=== PATIENT | male | born 1990 | race Hispanic/Latino ===

== ENCOUNTER 2016-11-12 20:26 | Emergency (ER) | payer SELFPAY ==
[~2016-11-12] VITALS: Ht 170.2 cm; Wt 113.4 kg
[~2016-11-12 20:26] MED LIST: CEPH500C PO; CYCL10TA9 PO; TRM50T PO
--- OUTSIDE RECORDS SUMMARY | 2016-11-12 20:31 | XMS REPORT ---
Author JB Balderas [facility], [place] eClinicalWorks Address Unknown Phone Unavailable Care Team Providers Care Therapeutic Recreation Specialist Name Role Phone JB LESLIE CP Unavailable Allergies, Adverse Reactions, Alerts Substance Reaction Event Type N.K.D.A. Info Not Available Non Drug Allergy Problems Problem Type Condition Code Onset Dates Condition Status Assessment Encounter for immunization Z23 Active Assessment Laceration of right hand, initial encounter S61.411A Active Medications Medication Code System Code Instructions Start Date End Date Status Dosage Bactrim DS [facility] [id number] 800-160 MG Orally 2 times a day Aug 06, 2015 Aug 16, 2015 1 tablet Procedures Procedure Coding System Code Date SINGLE IMMUNIZATION ADMIN CPT-4 19991 Aug 06, 2015 Office Visit, Est Pt., Level 2 CPT-4 18559 Aug 06, 2015 TDAP (BOOSTRIX) CPT-4 20064 Aug 06, 2015 Vital Signs Date/Time: Aug 06, 2015 Temperature 97.8 F Weight 238.4 lbs Height 68 in BMI 36.24 Index Blood Pressure Diastolic 76 mmHg Blood Pressure Systolic 124 mmHg Cardiac Monitoring Heart Rate 84 bpm Results No Known Results Immunizations Vaccine Administration Date TDAP (BOOSTRIX) Aug 06, 2015 Summary Purpose eClinicalWorks Submission
[2016-11-12] MEDS ORDERED: NS IV 1000 ML 1,000 ML ONE (21:00)
[2016-11-12] MEDS ORDERED: NS IV 1000 ML 1,000 ML IV SCH (21:00)
[2016-11-12 21:02] LABS: BASOPHILS % (AUTO) 0 % (0-10); EOSINOPHILS # (AUTO) 0.1 10^3/uL (0.0-0.3); EOSINOPHILS % (AUTO) 1 % (0-10); LYMPHOCYTES # (AUTO) 2.3 X 10^3 (1.0-4.0); LYMPHOCYTES % (AUTO) 27 % (12-44); MEAN CORPUSCULAR HEMOGLOBIN 30 PG (25-34); MEAN CORPUSCULAR HGB CONC 34 G/DL (32-36); MEAN CORPUSCULAR VOLUME 87 FL (80-99); MEAN PLATELET VOLUME 9.5 FL (7.4-10.4); MONOCYTES # (AUTO) 0.8 X 10^3 (0.0-1.0); MONOCYTES % (AUTO) 9 % (0-12); NEUTROPHILS # (AUTO) 5.3 X 10^3 (1.8-7.8); NEUTROPHILS % (AUTO) 62 % (42-75); PLATELET COUNT 227 10^3/uL (130-400); RED BLOOD COUNT 4.87 10^6/uL (4.35-5.85); RED CELL DISTRIBUTION WIDTH 14.4 % (10.0-14.5); WHITE BLOOD COUNT 8.5 10^3/uL (4.3-11.0)
--- NOTE | 2016-11-12 21:02 | ED Syncope ---
General Chief Complaint: Dizziness/Syncope Stated Complaint: LOC/SHAKY Nursing Triage Note: PT REPORTS GENERAL MAILAISE X 3 DAYS. PT REPORTS HE RAN OUT OF GAS TODAY AROUND 1800 WHILE DRIVING AND ATTEMPTED TO WALK TO A GAS STATION AND PASSED OUT. PT UNSURE OF HOW LONG. PT DENEIS ANY CURRENT PAIN/INJURY. Source of Information: Patient Exam Limitations: No Limitations History of Present Illness Time Seen by Provider: 21:01 Initial Comments To ER with general malaise for 3 days. This is been associated with chills, rhinorrhea, sore throat and cough. Tonight, he was driving and ran out of gas. He subsequently began walking and passed out. Unsure of how long. He denies any pain. States that he continues to feel very poorly overall. Additionally, he is been drinking about 12 pack a day for the past 2 weeks, none today. Timing/Prior Episodes: No Prior History Precipitating Factors: None Loss of Consciousness: Unsure Allergies and Home Medications Allergies Coded Allergies: No Known Drug Allergies (Verified Allergy, Unknown, 08/08/09) Home Medications No Active Prescriptions or Reported Meds Constitutional: see HPI chills malaise weakness EENTM: see HPI Respiratory: see HPI cough Cardiovascular: no symptoms reported Genitourinary: no symptoms reported Musculoskeletal: no symptoms reported Skin: no symptoms reported Psychiatric/Neurological: No Symptoms Reported Past Tqbuspd-Jxybhn-Iwtrim Hx Patient Social History Alcohol Use: Occasionally Uses Recreational Drug Use: No Smoking Status: Current Everyday Smoker Type Used: Cigarettes Recent Foreign Travel: No Contact w/Someone Who Travel: No Recent Infectious Disease Expo: No Recent Hopitalizations: No Immunizations Up To Date Tetanus Booster (TDap): Less than 5yrs Date of Pneumonia Vaccine: Oct 10, 2011 Surgeries HX Surgeries: No (R EYE) Surgeries: Eye Surgery Respiratory Hx Respiratory Disorders: No Cardiovascular Hx Cardiac Disorders: No Neurological Hx Neurological Disorders: No Reproductive System Hx Reproductive Disorders: No Genitourinary Hx Genitourinary Disorders: No Gastrointestinal Hx Gastrointestinal Disorders: Yes Gastrointestinal Disorders: Gastroesophageal Reflux Musculoskeletal Hx Musculoskeletal Disorders: No Endocrine Hx Endocrine Disorders: No HEENT HX 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) Psychosocial Hx Psychiatric Problems: No Blood Transfusions Hx Blood Disorders: No Family Medical History Significant Family History: No Pertinent Family Hx Physical Exam Vital Signs Vital Sign - Last 12Hours 11/12/16 20:34 Temp 99.7 Pulse 123 Resp 20 B/P 173/92 Pulse Ox 97 Capillary Refill : Less Than 3 Seconds General Appearance: No Apparent Distress WD/WN HEENT: PERRL/EOMI TMs Normal Neck: Full Range of Motion Normal Inspection Cardiovascular: Normal Peripheral Pulses Tachycardia Respiratory: Lungs Clear Normal Breath Sounds No Accessory Muscle Use No Respiratory Distress Gastrointestinal: Normal Bowel Sounds Non Tender Extremities: Normal Capillary Refill Normal Inspection Neurologic/Psychiatric: Alert Oriented x3 No Motor/Sensory Deficits Other (he is alert, cooperative and pleasant.) Cranial Nerves: Normal Hearing, Normal Speech, PERRL Skin: Normal Color Warm/Dry Comments He states that he does not feel anxious or jittery and does appear somewhat lethargic. Though he is arousable and quite pleasant. Progress/Results/Core Measures Results/Orders Lab Results Laboratory Tests Test 11/12/16 20:54 Range/Units Alanine Aminotransferase (ALT/SGPT) 20 0-55 U/L Albumin 4.5 3.2-4.5 G/DL Alkaline Phosphatase 78 40-136 U/L Anion Gap 15 H 5-14 MMOL/L Aspartate Amino Transf (AST/SGOT) 19 5-34 U/L BUN/Creatinine Ratio 7 Basophils # (Auto) 0.0 0.0-0.1 10^3/uL Basophils (%) (Auto) 0 0-10 % Blood Urea Nitrogen 5 L 7-18 MG/DL Calcium Level 8.9 8.5-10.1 MG/DL Carbon Dioxide Level 19 L 21-32 MMOL/L Chloride Level 106 98-107 MMOL/L Creatinine 0.75 0.60-1.30 MG/DL Eosinophils # (Auto) 0.1 0.0-0.3 10^3/uL Eosinophils (%) (Auto) 1 0-10 % Estimat Glomerular Filtration Rate > 60 Glucose Level 93 70-105 MG/DL Hematocrit 42 40-54 % Hemoglobin 14.5 13.3-17.7 G/DL Lymphocytes # (Auto) 2.3 1.0-4.0 X 10^3 Lymphocytes (%) (Auto) 27 12-44 % Mean Corpuscular Hemoglobin 30 25-34 PG Mean Corpuscular Hemoglobin Concent 34 32-36 G/DL Mean Corpuscular Volume 87 80-99 FL Mean Platelet Volume 9.5 7.4-10.4 FL Monocytes # (Auto) 0.8 0.0-1.0 X 10^3 Monocytes (%) (Auto) 9 0-12 % Monoscreen NEGATIVE NEGATIVE Neutrophils # (Auto) 5.3 1.8-7.8 X 10^3 Neutrophils (%) (Auto) 62 42-75 % Platelet Count 227 130-400 10^3/uL Potassium Level 3.6 3.6-5.0 MMOL/L Red Blood Count 4.87 4.35-5.85 10^6/uL Red Cell Distribution Width 14.4 10.0-14.5 % Serum Alcohol < 10 <10 MG/DL Sodium Level 140 135-145 MMOL/L Total Bilirubin 0.4 0.1-1.0 MG/DL Total Protein 7.4 6.4-8.2 G/DL White Blood Count 8.5 4.3-11.0 10^3/uL Micro Results Microbiology 11/12/16 Influenza Types A,B Antigen (ABI) - Final, Complete My Orders Orders-DECLAN COX APRN Ua Culture If Indicated (11/12/16 20:55) Drug Screen Stat (Urine) (11/12/16 20:55) Cbc With Automated Diff (11/12/16 20:55) Ekg Tracing (11/12/16 20:55) Comprehensive Metabolic Panel (11/12/16 20:55) Monotest (11/12/16 20:55) Influenza A And B Antigens (11/12/16 20:55) Alcohol (11/12/16 20:55) Ns Iv 1000 Ml (Sodium Chloride 0.9%) (11/12/16 21:00) Ns Iv 1000 Ml (Sodium Chloride 0.9%) (11/12/16 21:00) Metoprolol Tartrate Injection (Lopressor (11/12/16 21:45) Normal Saline 500 Ml Iv (11/12/16 21:45) Vital Signs/I&O Vital Sign - Last 12Hours 11/12/16 20:34 Temp 99.7 Pulse 123 Resp 20 B/P 173/92 Pulse Ox 97 Blood Pressure Mean: 119 Departure Impression Impression: Primary Impression: Influenza-like illness Disposition: 01 HOME, SELF-CARE Condition: Stable Departure-Patient Inst. Decision time for Depature: 21:33 Referrals: [facility] (PCP/Family) Primary Care Physician Patient Instructions: VIRAL SYNDROME Add. Discharge Instructions: 1. Return to ER for any concerns 2. Follow-up with your doctor next week 3. It is important to go home and drink a few beers. You should not stop drinking alcohol suddenly as this may cause things like alcohol withdrawal and seizures. With that in mind, go home and drink 3-5 beers. All discharge instructions reviewed with patient and/or family. Voiced understanding. Scripts No Active Prescriptions or Reported Meds DECLAN COX APRN Nov 12, 2016 21:02
[2016-11-12 21:20] LABS: ALANINE AMINOTRANSFERASE 20 U/L (0-55); ALBUMIN 4.5 G/DL (3.2-4.5); ANION GAP 15 MMOL/L (5-14); ASPARTATE AMINO TRANSFERASE 19 U/L (5-34); BILIRUBIN,TOTAL 0.4 MG/DL (0.1-1.0); BLOOD UREA NITROGEN 5 MG/DL (7-18); BUN/CREATININE RATIO 7; CALCIUM 8.9 MG/DL (8.5-10.1); CARBON DIOXIDE 19 MMOL/L (21-32); CHLORIDE 106 MMOL/L (98-107); CREATININE SERUM 0.75 MG/DL (0.60-1.30); GFR ESTIMATED > 60; GLUCOSE 93 MG/DL (70-105); POTASSIUM 3.6 MMOL/L (3.6-5.0); SODIUM 140 MMOL/L (135-145); TOTAL PROTEIN 7.4 G/DL (6.4-8.2)
[2016-11-12 21:21] LABS: ALCOHOL < 10 MG/DL (<10)
[2016-11-12] MEDS ORDERED: NS IV 500 ML 500 ML IV SCH (21:45)
[2016-11-12] MEDS ORDERED: meTOprolol 5 MG/5 ML (LOPRESSOR) VIAL IV ONE (21:45)
[2016-11-12 22:06] VITALS: BP 154/95
== END 2016-11-12 22:06 | disposition home or self-care (01) ==
LOC: EDUNIT# 20:26 → ER 20:27
DX: J11.1 Influenza due to unidentified influenza virus with other respiratory manifestations (principal); R55 Syncope and collapse; F17.210 Nicotine dependence, cigarettes, uncomplicated
CPT/HCPCS: 36415; 80053; 80320; 85025; 86308; 87804; 93005; 96361; 96374

== ENCOUNTER 2021-05-09 13:23 | Emergency (ER) | payer SELFPAY ==
[~2021-05-09] VITALS: Ht 170.1 cm; Wt 122.4 kg
[2021-05-09] MEDS ORDERED: NS IV 1000 ML 1,000 ML IV SCH (14:00)
[2021-05-09 14:17] LABS: BASOPHILS % (AUTO) 0 % (0-10); EOSINOPHILS # (AUTO) 0.2 10^3/uL (0.0-0.3); EOSINOPHILS % (AUTO) 1 % (0-10); HEMATOCRIT 41 % (40-54); HEMOGLOBIN 13.6 g/dL (13.3-17.7); LYMPHOCYTES # (AUTO) 2.9 10^3/uL (1.0-4.0); LYMPHOCYTES % (AUTO) 25 % (12-44); MEAN CORPUSCULAR HEMOGLOBIN 29 pg (25-34); MEAN CORPUSCULAR HGB CONC 34 g/dL (32-36); MEAN CORPUSCULAR VOLUME 88 fL (80-99); MEAN PLATELET VOLUME 9.7 fL (9.0-12.2); MONOCYTES % (AUTO) 9 % (0-12); NEUTROPHILS # (AUTO) 7.1 10^3/uL (1.8-7.8); NEUTROPHILS % (AUTO) 64 % (42-75); PLATELET COUNT 247 10^3/uL (130-400); WHITE BLOOD COUNT 11.2 10^3/uL (4.3-11.0)
[2021-05-09 14:18] LABS: BILIRUBIN,URINE NEGATIVE (NEGATIVE); CLARITY,URINE CLEAR; COLOR,URINE YELLOW; GLUCOSE, URINE (UA) NEGATIVE (NEGATIVE); KETONES,URINE 1+ (NEGATIVE); LEUKOCYTE ESTERASE ,URINE NEGATIVE (NEGATIVE); NITRITE,URINE NEGATIVE (NEGATIVE); PROTEIN,URINE NEGATIVE (NEGATIVE)
[2021-05-09 14:29] LABS: ALBUMIN 4.5 GM/DL (3.2-4.5); POTASSIUM 3.8 MMOL/L (3.6-5.0)
[2021-05-09 14:30] LABS: CALCIUM 9.6 MG/DL (8.5-10.1)
[2021-05-09 14:31] LABS: TOTAL PROTEIN 7.8 GM/DL (6.4-8.2)
[2021-05-09 14:33] LABS: BILIRUBIN,TOTAL 0.5 MG/DL (0.1-1.0)
[2021-05-09 14:35] LABS: CREATININE SERUM 0.82 MG/DL (0.60-1.30)
[2021-05-09 14:42] LABS: AMORPHOUS SEDIMENT,UR FEW AMOR URATES /LPF; BACTERIA,URINE TRACE /HPF; RBC,URINE RARE /HPF
--- NOTE | 2021-05-09 15:00 | Diagnostic Imaging Report ---
EXAMINATION: Chest 1 view HISTORY: Shortness of breath and cough COMPARISON: None available. FINDINGS: The lungs are clear without edema or pneumonia. No pleural effusion or pneumothorax. Heart size is normal. IMPRESSION: 1. Clear lungs. Dictated by: Dictated on workstation # [id number]
--- NOTE | 2021-05-09 15:12 | ED Cough/URI ---
General Chief Complaint: Respiratory Problems Stated Complaint: BLOOD IN STOOL FEVER COUGH SOA Nursing Triage Note: ARRIVES TODAY TO ROOM 5 WITH A COMPLAINT OF SOB, SORE THROAT, CONSTIPATION AND BLOOD IN STOOL. PATIENT STATES HE HAS HAD ISSUES WITH CONSTIPATION AND TODAY NOTICED BLOOD IN HIS STOOL AFTER STRAINING TO DEFICATE. DENIES FEVER AND COUGH. Source: patient Exam Limitations: no limitations History of Present Illness Date Seen by Provider: May 09, 2021 Time Seen by Provider: 13:55 Initial Comments Patient is a 30-year-old male who presents to the emergency department today with a chief complaint of shortness of breath, cough, sore throat, feeling constipated and noticed blood in his stool today. Patient states that his sore throat and cough and other constitutional symptoms have been coming on for a couple of days. He denies any known Covid contacts. He is not Covid vaccinated. He denies nausea, chest pain. He denies earache or nasal congestion. He states he was straining to have a bowel movement today when he noticed blood that concerned him. He has no known hemorrhoids. He does endorse a little bit of dysuria that is intermittent over the last few weeks. Patient tells me that he has a history of methamphetamine use. He is trying to get clean. He does have a little bit of concern for sexually transmitted infection. No fevers or chills. Has not taken anything for his symptoms. All other review of systems reviewed and negative except as stated. Severity/Quality: mild, dry cough Prior Episodes/Possible Cause: no prior episodes Associated Symptoms: cough, lightheadedness, shortness of breath, sore throat Allergies and Home Medications Allergies Coded Allergies: No Known Drug Allergies (Verified , 08/08/09) Home Medications No Active Prescriptions or Reported Meds Patient Home Medication List Home Medication List Reviewed: Yes Review of Systems Review of Systems Constitutional: see HPI, chills EENTM: throat pain Respiratory: cough, short of breath Cardiovascular: no symptoms reported Gastrointestinal: other (Blood in stool) Genitourinary: dysuria Musculoskeletal: no symptoms reported Skin: no symptoms reported Psychiatric/Neurological: No Symptoms Reported All Other Systems Reviewed Negative Unless Noted: Yes Past Nhuufud-Ytueuz-Ciated Hx Patient Social History Tobacco type used: Cigarettes Smoking Status: Current Everyday Smoker Use of E-Cig and/or Vaping dev: No Substance use?: Yes Substance type: Methamphetamine Alcohol Use?: Yes Alcohol type: Beer Alcohol Frequency: Couple times a week Pt feels they are or have been: No Immunizations Up To Date Tetanus Booster (TDap): Less than 5yrs Past Medical History Eye Surgery Reproductive Disorders: No Gastroesophageal Reflux Family Medical History No Pertinent Family Hx Physical Exam Vital Signs - First Documented 05/09/21 13:50 Temp 37.0 Pulse 106 Resp 20 B/P (MAP) 161/100 (120) Pulse Ox 97 O2 Delivery Room Air Capillary Refill : Less Than 3 Seconds Height: 5'7" Weight: 250lbs. oz. 113.995936is; 42.00 BMI Method:Stated General Appearance: WD/WN, no apparent distress Eyes: Bilateral Eye Normal Inspection, Bilateral Eye PERRL, Bilateral Eye EOMI HEENT: pharyngeal erythema Neck: non-tender, full range of motion, supple, normal inspection Respiratory: lungs clear, normal breath sounds, no respiratory distress, no accessory muscle use Cardiovascular: regular rate, rhythm Gastrointestinal: non tender, soft, other (Hemoccult positive on digital rectal exam; ) Extremities: normal range of motion, non-tender Neurologic/Psychiatric: alert, normal mood/affect, oriented x 3 Skin: normal color, warm/dry Progress/Results/Core Measures Suspected Sepsis SIRS Temperature: Pulse: 106 Respiratory Rate: 20 Laboratory Tests 05/09/21 14:00: White Blood Count 11.2H Blood Pressure 161 /100 Mean: 120 Laboratory Tests 05/09/21 14:00: Creatinine 0.82, Platelet Count 247, Total Bilirubin 0.5 Results/Orders Lab Results Laboratory Tests Test 05/09/21 14:00 Range/Units White Blood Count 11.2 H 4.3-11.0 10^3/uL Red Blood Count 4.62 4.30-5.52 10^6/uL Hemoglobin 13.6 13.3-17.7 g/dL Hematocrit 41 40-54 % Mean Corpuscular Volume 88 80-99 fL Mean Corpuscular Hemoglobin 29 25-34 pg Mean Corpuscular Hemoglobin Concent 34 32-36 g/dL Red Cell Distribution Width 14.3 10.0-14.5 % Platelet Count 247 130-400 10^3/uL Mean Platelet Volume 9.7 9.0-12.2 fL Immature Granulocyte % (Auto) 0 % Neutrophils (%) (Auto) 64 42-75 % Lymphocytes (%) (Auto) 25 12-44 % Monocytes (%) (Auto) 9 0-12 % Eosinophils (%) (Auto) 1 0-10 % Basophils (%) (Auto) 0 0-10 % Neutrophils # (Auto) 7.1 1.8-7.8 10^3/uL Lymphocytes # (Auto) 2.9 1.0-4.0 10^3/uL Monocytes # (Auto) 1.0 0.0-1.0 10^3/uL Eosinophils # (Auto) 0.2 0.0-0.3 10^3/uL Basophils # (Auto) 0.0 0.0-0.1 10^3/uL Immature Granulocyte # (Auto) 0.0 0.0-0.1 10^3/uL Urine Color YELLOW Urine Clarity CLEAR Urine pH 6.0 5-9 Urine Specific [place] 1.025 H 1.016-1.022 Urine Protein NEGATIVE NEGATIVE Urine Glucose (UA) NEGATIVE NEGATIVE Urine Ketones 1+ H NEGATIVE Urine Nitrite NEGATIVE NEGATIVE Urine Bilirubin NEGATIVE NEGATIVE Urine Urobilinogen 0.2 < = 1.0 MG/DL Urine Leukocyte Esterase NEGATIVE NEGATIVE Urine RBC (Auto) NEGATIVE NEGATIVE Urine RBC RARE /HPF Urine WBC NONE /HPF Urine Crystals PRESENT H /LPF Urine Amorphous Sediment FEW WLILIAN URATES H /LPF Urine Bacteria TRACE /HPF Urine Casts NONE /LPF Urine Mucus LARGE H /LPF Urine Culture Indicated NO Sodium Level 143 135-145 MMOL/L Potassium Level 3.8 3.6-5.0 MMOL/L Chloride Level 105 98-107 MMOL/L Carbon Dioxide Level 23 21-32 MMOL/L Anion Gap 15 H 5-14 MMOL/L Blood Urea Nitrogen 13 7-18 MG/DL Creatinine 0.82 0.60-1.30 MG/DL Estimat Glomerular Filtration Rate 111 BUN/Creatinine Ratio 16 Glucose Level 105 70-105 MG/DL Calcium Level 9.6 8.5-10.1 MG/DL Corrected Calcium 9.2 8.5-10.1 MG/DL Total Bilirubin 0.5 0.1-1.0 MG/DL Aspartate Amino Transf (AST/SGOT) 23 5-34 U/L Alanine Aminotransferase (ALT/SGPT) 28 0-55 U/L Alkaline Phosphatase 69 40-136 U/L Total Protein 7.8 6.4-8.2 GM/DL Albumin 4.5 3.2-4.5 GM/DL SARS-CoV-2 RNA (RT-PCR) Not Detected Not Detecte My Orders Orders - GRICELDA LACY MD Ed Iv/Invasive Line Start (05/09/21 13:59) Cbc With Automated Diff (05/09/21 13:59) Comprehensive Metabolic Panel (05/09/21 13:59) Ua Culture If Indicated (05/09/21 13:59) Chlamydia Trachomatis Urine (05/09/21 13:59) Neis Manuel Dna Urine Test (05/09/21 13:59) Chest 1 View, Ap/Pa Only (05/09/21 13:59) Covid 19 Inhouse Test (05/09/21 13:59) Ns Iv 1000 Ml (Sodium Chloride 0.9%) (05/09/21 14:00) Vital Signs/I&O 05/09/21 13:50 Temp 37.0 Pulse 106 Resp 20 B/P (MAP) 161/100 (120) Pulse Ox 97 O2 Delivery Room Air Capillary Refill : Less Than 3 Seconds Blood Pressure Mean: 120 Progress Note : Time: 16:25 Progress Note Patient seen and evaluated again after laboratory studies, Covid test and chest x-ray. All of his studies have been reviewed and are within normal limits. Covid test is negative. Chest x-ray shows no evidence of pneumonia or any other acute pathology. Patient is comfortable. I have reviewed with him plan of care which includes [id number] medications like Tylenol or ibuprofen for his symptoms. I have given him return precautions regarding the blood in his stools. Stool softeners for constipation. I have encouraged him to stop using methamphetamine. He verbalized understanding. All questions have been sought and answered. Patient is stable for discharge Diagnostic Imaging Diagonstic Imaging: Xray Plain Films/CT/US/NM/MRI: chest Comments [facility]. [place], [place] NAME: ANACARMEN Iris [facility] REC#: [id number] PT STATUS: REG ER : 1990 PHYSICIAN: GRICELDA LACY MD ADMIT DATE: 05/09/21/ER Draft Date of Exam:05/09/21 CHEST 1 VIEW, AP/PA ONLY EXAMINATION: Chest 1 view HISTORY: Shortness of breath and cough COMPARISON: None available. FINDINGS: The lungs are clear without edema or pneumonia. No pleural effusion or pneumothorax. Heart size is normal. IMPRESSION: 1. Clear lungs. Dictated on workstation # [id number] Dict: 05/09/21 1459 Trans: 05/09/21 1500 CVB [id number] Interpreted by: TRAMAINE TOURE MD Electronically signed by: Departure Impression Primary Impression: Viral syndrome Additional Impression: Blood in stool Disposition: HOME, SELF-CARE Condition: Stable Departure-Patient Inst. Decision time for Depature: 16:24 Referrals: [facility] (PCP/Family) Primary Care Physician JULIANA BOOTH DO Patient Instructions: Viral Syndrome (DC) Add. Discharge Instructions: Drink lots of fluids to stay well-hydrated. Stool softeners for constipation. Use [id number] Tylenol or ibuprofen as needed for throat pain. Warm salt water gargles will help with throat discomfort. If you have persistent shortness of breath or cough you may need to be reCovid tested in 24 to 48 hours. Please continue to wear masks and social distance. If you continue to have blood in your stool you will need to follow-up with the surgeon on-call, Dr. Booth. I have provided his contact information. Come back to the emergency department for reevaluation if you have any worsening symptoms, lightheadedness dizziness passing out spells, pain or any other emergent concerning symptoms. Scripts No Active Prescriptions or Reported Meds GRICELDA LACY MD May 09, 2021 15:12
[2021-05-09 16:43] VITALS: BP 106/61
== END 2021-05-09 16:43 | disposition home or self-care (01) ==
LOC: EDUNIT# 13:23 → ER 13:26
DX: B34.9 Viral infection, unspecified (principal); K92.1 Melena; F17.210 Nicotine dependence, cigarettes, uncomplicated; Z20.822 Contact with and (suspected) exposure to COVID-19
CPT/HCPCS: 36415; 71045; 80053; 81000; 85025; 87491; 87591; 87636